=== PATIENT | male | born 2000 | race African-American/Black ===

== ENCOUNTER 2024-12-16 10:11 | Emergency (ER) | payer BC, OTHER ==
[2024-12-16] MEDS: SODIUM CHLORIDE 1,000 ML IV STA (10:45)
[2024-12-16 11:24] VITALS: TEMP 98; BMI 28.7
[2024-12-16 12:06] VITALS: BP 118/76; PULSE 97; RESP 16
== END 2024-12-16 12:10 | disposition home or self-care (01) ==
LOC: JER 10:11
PROC: 3E0337Z Introduction of Electrolytic and Water Balance Substance into Peripheral Vein, Percutaneous Approach (ICD-10-PCS; principal; 2024-12-16)
DX: R42 Dizziness and giddiness (principal); Z63.4 Disappearance and death of family member
CPT/HCPCS: 93005; 93010; 99283-25